=== PATIENT | male | born 2000 | race Caucasian/White ===

== ENCOUNTER 2019-04-03 20:58 | Emergency (ER) | payer SELFPAY ==
--- NOTE | 2019-04-03 21:58 | EDM.PDOC ---
ED HPI GENERAL MEDICAL PROBLEM - General Chief Complaint: ENT Problem Stated Complaint: TOOTH ACHE Time Seen by Provider: 04/03/19 21:40 Source of Information: Reports: Patient, Old Records, RN History Limitations: Reports: No Limitations - History of Present Illness INITIAL COMMENTS - FREE TEXT/NARRATIVE: 18 yo male here with a toothache since Wednesday. No fever. Has noticed some facial swelling. Took ibuprofen, but has not reached out yet to a dentist. His family doctor was not in today. Onset: Gradual Onset Date: 03/31/19 Duration: Day(s):, Getting Worse Location: Reports: Face Quality: Reports: Ache Severity: Moderate Improves with: Reports: Medication Worsens with: Reports: Other (time) Context: Reports: Other (see HPI) Associated Symptoms: Reports: No Other Symptoms. 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 Pain Score (Numeric/FACES): 5 - Related Data Allergies Allergy/AdvReac Type Severity Reaction Status Date / Time cephalexin [From Keflex] Allergy Hives Verified 04/03/19 21:44 codeine Allergy Hives Verified 04/03/19 21:44 levofloxacin [From Levaquin] Allergy Hives Verified 04/03/19 21:44 Home Meds: Home Meds Escitalopram [Lexapro] 20 mg PO DAILY 04/03/19 [History] Past Medical History Psychiatric History: Reports: ADHD, Depression - Past Surgical History HEENT Surgical History: Reports: Tonsillectomy GI Surgical History: Reports: Cholecystectomy Social & Family History - Tobacco Use Smoking Status *Q: Never Smoker - Caffeine Use Caffeine Use: Reports: Soda - Recreational Drug Use Recreational Drug Use: No ED ROS ENT - Review of Systems Review Of Systems: See Below Constitutional: Reports: No Symptoms HEENT: Reports: Dental Pain Respiratory: Reports: No Symptoms Cardiovascular: Reports: No Symptoms GI/Abdominal: Reports: No Symptoms Skin: Reports: No Symptoms Neurological: Reports: No Symptoms ED EXAM, ENT - Physical Exam Exam: See Below Exam Limited By: No Limitations General Appearance: Alert, WD/WN, No Apparent Distress Eye Exam: Bilateral Eye: Normal Inspection Ears: Normal External Exam, Normal Canal, Hearing Grossly Normal, Normal TMs Nose: Normal Inspection, No Blood Mouth/Throat: Normal Lips, Normal Oropharynx, Dental Pain, Dental Tenderness, Other (Large cavity R posterior molar). No: Normal Teeth Head: Atraumatic, Normocephalic Neck: Other (some fullness/tenderness under the angle of the mandible on the R) Respiratory/Chest: No Respiratory Distress, Lungs Clear, Normal Breath Sounds, No Accessory Muscle Use Cardiovascular: Regular Rate, Rhythm Skin: Warm, Dry, Intact, Normal Color, No Rash Course - Vital Signs Last Recorded V/S: Last Vital Signs Temp 37.7 C 04/03/19 21:45 Pulse 92 04/03/19 21:45 Resp 16 04/03/19 21:45 BP 144/92 H 04/03/19 21:45 Pulse Ox 98 04/03/19 21:45 Departure - Departure Time of Disposition: 21:56 Disposition: Home, Self-Care 01 Condition: Fair Clinical Impression: Pain, dental - Discharge Information *PRESCRIPTION DRUG MONITORING PROGRAM REVIEWED*: No *COPY OF PRESCRIPTION DRUG MONITORING REPORT IN PATIENT MARIEL: No Referrals: PCP,None [Primary Care Provider] - Additional Instructions: Take the penicillin every 6 hrs. Continue ibuprofen up to 600 mg every 6 hrs with food. Add either acetaminophen up to 1000 mg every 6 hrs OR [place] for added relief. Contract your dentist right away in the morning for definitive care.
== END 2019-04-03 22:04 | disposition home or self-care (01) ==
LOC: JP.ED 20:58
DX: K02.9 Dental caries, unspecified (principal); F90.9 Attention-deficit hyperactivity disorder, unspecified type; K08.89 Other specified disorders of teeth and supporting structures; Z88.1 Allergy status to other antibiotic agents; Z88.5 Allergy status to narcotic agent; Z79.899 Other long term (current) drug therapy
CPT/HCPCS: 99282; 99283